=== PATIENT | male | born 1995 | race Two or more races ===

== ENCOUNTER 2024-12-27 18:24 | Emergency (ER) | payer SELFPAY ==
[~2024-12-27] VITALS: Ht 177.8 cm; Wt 104.5 kg
--- NOTE | 2024-12-27 19:13 | Physician Documentation ---
History of Present Illness ~ Chief Complaint: Laceration Stated Complaint: FINGER LAC Time Seen by MD: 19:08 HPI Right pinky laceration from washing a glass. Tdp not current. Cm laceration just proximal to the MCP. FDP and FDS intact. No current bleeding. Medication Reconciliation Allergies: Coded Allergies: No Known Allergies (Unverified , 12/27/24) Review of Systems All Other Systems at this time: Reviewed and Negative Musculoskeletal: Reports: other (1 cm laceration to the right pinky finger) Physical Exam Vital Signs: Temperature: 97.9, Heart Rate: 82, Respiratory Rate: 16, BP: 133/81, Pulse Oximetry: 99, Weight: 104.550 Oxygen Flow Rate: 0 General Appearance: alert, WD/WN, mild distress EENT: PERRL/EOMI Respiratory: normal breath sounds Extremities: other (Right 5th finger with 1 cm laceration just proximal to the MCP in the dorsal side. No joint involvement. FT as FDP intact no foreign body) Neurologic: oriented x4 Lymphatic: normal inspection Psychiatric: normal mood/affect Procedures Laceration/Wound Repair Laceration : Location: Right 5th finger pinky Length (cm): 1 Anesthesia: Lidocaine Volume Anesthetic (mls): 1 Prep: betadine, shur-clens Wound Repaired With: sutures Suture Size/Type: 3-0, nylon Number of Superficial Sutures: 3 Dressing Applied: simple Tolerated Procedure Well?: yes, no complications Progress Results/Orders Results/Orders Completed Orders - RAJEEV ALVARADO PAC Tetanus/Pertuss/Diph Acell/Pf (Boostrix (12/27/24 19:15) Lidocaine 1% 30ml Vial (Xylocaine 1% Via (12/27/24 19:11) Medications Received in ER Medications (Trade) Dose Ordered Sig/Lary Route PRN Reason Start Time Stop Time Status Last Admin Dose Admin (Boostrix vaccine syringe) 0.5 ml ONCE ONCE IMVAC 12/27/24 19:15 12/27/24 19:16 DC 12/27/24 19:26 0.5 ML (Xylocaine 1% vial) ONCE STAT IJ 12/27/24 19:11 12/27/24 19:15 DC 12/27/24 19:25 10 ML Vital Signs 12/27/24 18:49 Temp 97.9 Pulse 82 Resp 16 B/P (MAP) 133/81 Pulse Ox 99 O2 Flow Rate 0 Medical Decision Making Additional Comments Examination history consistent with simple laceration repair to the right pinky. Wound cleansed with copious soap and water. Anesthetized with 1% lidocaine. After achieving adequate anesthesia the wound was cleansed with 3 times 3-0 nylon interrupted simple sutures. Aftercare instructions provided the patient. Instructions to apply topical antibiotic twice daily along with 72 hour wound check and suture removed 14 days from today. Tolerated procedure well. Safely discharged with the emergency department. Tdap updated. Departure Disposition: HOME / SELF CARE / HOMELESS Impression: Primary Impression: Finger laceration Qualified Codes: S61.216A - Laceration without foreign body of right little finger without damage to nail, initial encounter Discharge Instructions: Laceration Care, Adult, [id number] Additional Instructions: Please keep wound clean and dry. 72 hour wound check if signs of infection please return to the emergency department. In the interim please apply Bacitracin or topical antibiotic twice daily and have sutures removed 14 days from today. Thank you for visiting emergency department [facility] Referrals: NO PRIMARY CARE PROVIDER (PCP) Education Educated: Patient Educated regarding: diagnosis Signature Scribe Signature: . Attestation: . RAJEEV ALVARADO PAC Dec 27, 2024 19:13
[2024-12-27] MEDS: LIDOcaine 1% 30ml preserv. free vial IJ STA (19:25)
[2024-12-27] MEDS: TETanus/Pertussis (Acell)/Diphther VAC/PF (Tdap-Adult) 0.5ml syringe IMVAC ONE (19:26)
[2024-12-27 20:19] VITALS: BP 130/80; PULSE 80; RESP 18; TEMP 98.6; O2SAT 99
== END 2024-12-27 20:20 | disposition home or self-care (01) ==
LOC: ER 18:25
DX: S61.216A Laceration without foreign body of right little finger without damage to nail, initial encounter (principal); W25.XXXA Contact with sharp glass, initial encounter; Y93.89 Activity, other specified; Y92.89 Other specified places as the place of occurrence of the external cause; Y99.8 Other external cause status
CPT/HCPCS: 12001; 90471; 90715; 99283; J2003; A6449

== ENCOUNTER 2025-01-02 19:11 | Emergency (ER) | payer SELFPAY ==
[~2025-01-02] VITALS: Ht 177.8 cm; Wt 115.0 kg
[2025-01-02 19:14] VITALS: BP 121/78; PULSE 65; RESP 18; O2SAT 100
--- NOTE | 2025-01-02 19:18 | Physician Documentation ---
History of Present Illness Stated Complaint: FLANK PAIN HPI MSE: Patient is a 29-year-old male that reports to the emergency department for evaluation of urinary symptoms. Patient reports that he has intermittent symptoms of dysuria x1 week. Reports being sexually active but uses protection he is not concerned about STIs at this time and does not wish to be tested. Denies fever chills nausea vomiting diarrhea. Denies any other symptoms at this time. Medication Reconciliation Allergies: Coded Allergies: No Known Allergies (Unverified , 12/27/24) Review of Systems ROS As stated above in the HPI, otherwise all systems are reviewed and negative. Physical Exam Physical Exam VITALS: Reviewed and as above. GENERAL: Alert, no apparent distress. GI: Soft, non-tender, bowels sounds present, no rebound, guarding, or rigidity BACK: No CVA tenderness, or swelling SKIN: Warm and dry, no rash NEURO: Oriented x4, No motor or sensory deficit PSYCH: Normal mood and affect, no agitation Medical Decision Making Findings This patient presents with dysuria intermittent low pelvic pressure. Differential includes simple cystitis, pyelonephritis, epididymitis. Based on history and physical no signs of epididymitis or orchitis, or pyelonephritis at this time. UA is negative at this time. Discussed with patient at length need to return to the emergency department if his symptoms persist he develops any systemic symptoms i.e. fever chills nausea vomiting increased dysuria increased pelvic pain inability to urinate excessive urination blood in his urine or any other concerning symptoms. Differential Dx:Considerations: Include: AAA, Angina/IA, Aortic dissection, Appendicitis, Bowel obstruction, Cholangitis, Cholelithasis, Constipation, Diverticular disease, Esophageal rupture, Esophagitis, Gastritis/PUD, Gastroenteritis, GI hemorrhage, Hernia, Hepatitis, Inflammatory BD, Ischemic bowel, Pancreatitis, Porphyria, Testicular torsion, Trauma, intraabdominal, Urinary obstruction, Urinary tract infection, Urolithiasis, Other Departure Disposition: 01 HOME / SELF CARE / HOMELESS Impression: Primary Impression: Dysuria Condition: Stable Discharge Instructions: Dysuria Additional Instructions: This patient presents with dysuria intermittent low pelvic pressure. Differentia l includes simple cystitis, pyelonephritis, epididymitis. Based on history and physical no signs of epididymitis or orchitis, or pyelonephritis at this time. UA is negative at this time. Discussed with patient at length need to return to the emergency department if his symptoms persist he develops any systemic symptoms i.e. fever chills nausea vomiting increased dysuria increased pelvic pain inability to urinate excessive urination blood in his urine or any other concerning symptoms. Follow up with her primary care provider. Please return to the emergency department with any worsening or recurrent symptoms or any additional concerning symptoms that we discussed here today. Referrals: NO PRIMARY CARE PROVIDER (PCP) Education Educated: Patient Educated regarding: diagnosis, treatment, need for follow up Signature Scribe Signature: A Attestation: Scribed for Emigdio Kelley by TRAVIS Moss . 01/02/25 22:12 EMIGDIO KELLEY Jan 02, 2025 19:18
[2025-01-02 19:28] LABS: LEUKOCYTE ESTERASE ,URINE NEGATIVE (Neg); NITRITES, URINE NEGATIVE (Neg); OCCULT BLOOD,URINE NEGATIVE (Neg)
[2025-01-02 19:34] LABS: UA COLLECTION TYPE NON-SPECIFIED
[2025-01-02 22:13] VITALS: TEMP 97
== END 2025-01-02 22:16 | disposition home or self-care (01) ==
LOC: ER 19:11
DX: R30.0 Dysuria (principal)
CPT/HCPCS: 81003; 99283

== ENCOUNTER 2025-01-09 18:14 | Emergency (ER) | payer SELFPAY ==
[~2025-01-09] VITALS: Ht 177.8 cm; Wt 115.0 kg
[2025-01-09 18:36] VITALS: BP 125/70; PULSE 66; RESP 16; TEMP 97.9; O2SAT 99
--- NOTE | 2025-01-09 18:51 | Physician Documentation ---
History of Present Illness ~ Chief Complaint: Suture Removal Stated Complaint: STITCH REMOVAL Time Seen by MD: 18:46 OK to notify your PCP?: Yes Source: patient Mode of Arrival: POV Exam Limitations: no limitations HPI 29 y/o male here for suture removal right 5th digit placed here on 12/27/24. Patient has no concerns or complaints. Denies any drainage from the area, increasing pain or decreased range motion of his finger. Tetanus Within 5 Years: No Medication Reconciliation Allergies: Coded Allergies: No Known Allergies (Unverified , 12/27/24) Past Medical History Past Medical History: No Pertinent History Past Surgical History: noncontributory Drug Use: none Review of Systems All Other Systems at this time: Reviewed and Negative Physical Exam Vital Signs: Temperature: 97.9, Source: Temporal, Heart Rate: 66, Respiratory Rate: 16, BP: 125/70, Pulse Oximetry: 99, Weight: 115.000 Oxygen Flow Rate: 0 Physical Exam General Appearance: Alert, WD/WN. NAD. HEENT: NCAT, PERRL, EOMI. Neck: Supple, trachea midline. Lungs: Breathing unlabored Extremities: Active range motion of right 5th digit normal. No edema. Skin: Warm/dry, normal color. Right 5th digit laceration with three simple interrupted sutures present. Neurological: Alert and oriented x4, normal gait. Psychiatric: Affect congruent with mood. Progress Results/Orders Results/Orders Vital Signs 01/09/25 18:36 Temp 97.9 Pulse 66 Resp 16 B/P (MAP) 125/70 Pulse Ox 99 O2 Flow Rate 0 Medical Decision Making Differential Dx:Considerations: Include: Cellulitis, Suture removal, Wound dehiscence Departure Time of Disposition: 18:51 Disposition: 01 HOME / SELF CARE / HOMELESS Impression: Primary Impression: Visit for suture removal Condition: Stable Discharge Instructions: Suture Removal, Care After Additional Instructions: WE DISCUSSED THE LACERATION IS STILL NOT COMPLETELY HEALED SO BE CAREFUL WITH YOUR FINGER-TRYING NOT TO DO ANYTHING THAT WILL CAUSE IT TO SPLIT BACK OPEN UNTIL IT IS COMPLETELY HEALED. Referrals: NO PRIMARY CARE PROVIDER (PCP) Education Educated: Patient Educated regarding: diagnosis, treatment Signature Scribe Signature: x Attestation: NURYS Quezada Jan 09, 2025 18:51
== END 2025-01-09 19:01 | disposition home or self-care (01) ==
LOC: ER 18:14
DX: S61.216D Laceration without foreign body of right little finger without damage to nail, subsequent encounter (principal); X58.XXXD Exposure to other specified factors, subsequent encounter
CPT/HCPCS: 99281; 99282